=== PATIENT | female | born 1985 | race African-American/Black ===

== ENCOUNTER 2016-11-18 17:51 | Emergency (ER) | payer MEDICAID ==
[~2016-11-18 17:51] MED LIST: COLACE100 M1 PO; FEROSUL325 M1 PO; IBUPROFEN800 M1 PO; PERCOCET 5-3251 EACH PO; PRENA1 CHEW TA1.4 M1 PO
[2016-11-18] MEDS ORDERED: NO HOME MEDICATION XX (19:24)
[2016-11-18 20:29] LABS: BASO % 0.1 % (0-2); EOS % 2.3 % (0-7); EOSINOPHIL ABSOLUTE COUNT 0.2 tho/cmm (0.0-0.7); HCT-HEMATOCRIT 39.4 % (34.0-49.0); HGB-HEMOGLOBIN 12.5 gm/dl (12.0-15.5); IMMATURE GRANULOCYTES ABSOLUTE 0.02 tho/cmm (0-0.03); IMMATURE GRANULOCYTES PERCENT 0.3 % (0-0.3); LYMPH % 36.6 % (20-45); LYMPH ABSOLUTE COUNT 2.9 tho/cmm (0.8-4.5); MCH (MEAN CORPUSCULAR HGB) 22.9 pg (28.0-32.0); MCHC MEAN CORPUSCULAR HGB CONC 31.7 % (32.0-36.0); MCV (MEAN CELL VOLUME) 72.3 fl (82.0-96.0); MEAN PLATELET VOLUME 11.7 cmc (9.4-12.4); MONO % 5.9 % (0-12); MONOCYTE ABSOLUTE COUNT 0.5 tho/cmm (0.0-1.2); NEUTROPHIL ABSOLUTE COUNT 4.3 tho/cmm (1.6-8.0); NEUTROPHIL-AUTOMATED 4.3 tho/cmm (1.6-8.0); NEUTROPHILS % 54.8 % (40-80); PLATELET COUNT 219 tho/cmm (150-450); RED BLOOD COUNT 5.45 mil/cmm (4.00-5.20); RED CELL DISTRIBUTION WIDTH 13.4 % (12.4-16.4); WHITE BLOOD COUNT 7.8 tho/cmm (4.0-10.0)
[2016-11-18 20:39] LABS: ANION GAP 10 mmol/L (0-20); BLOOD UREA NITROGEN 9 mg/dl (6-24); CALCIUM 8.5 mg/dl (8.5-10.5); CARBON DIOXIDE-VENOUS 28 mmol/L (22-32); CHLORIDE 105 mmol/l (96-110); CREATININE 0.58 mg/dl (0.50-1.10); GLUCOSE 95 mg/dL (70-110); POTASSIUM 3.8 mmol/L (3.7-5.1); SODIUM 139 mmol/L (135-145); eGFR VALUE FOR BLACK >90 mL/Min
[2016-11-18 20:43] LABS: PREGNANCY-SERUM NEGATIVE (NEGATIVE)
== END 2016-11-18 21:28 ==
LOC: EDMED 17:51
PROVIDERS: Physician Assistant
DX: R51 Headache (principal); R11.0 Nausea; F17.210 Nicotine dependence, cigarettes, uncomplicated; Z98.890 Other specified postprocedural states
CPT/HCPCS: J1200; J1885; J2765; J7030